=== PATIENT | male | born 1960 | race Caucasian/White ===

== ENCOUNTER 2019-05-09 03:56 | Emergency (ER) | payer OTHER ==
[~2019-05-09] VITALS: Ht 172.7 cm; Wt 90.7 kg
[~2019-05-09 03:56] MED LIST: CIPROFLOXACIN500 M1 PO; FLAGYL 250 MG250 MG PO; ZOFRAN ODT4 MG PO
[2019-05-09] MEDS ORDERED: HYDROCODON-ACE1 EAC8 PO (05:40)
[2019-05-09 05:52] VITALS: BP 127/84
== END 2019-05-09 05:53 | disposition home or self-care (01) ==
LOC: M.ERS 03:56
DX: S69.82XA Other specified injuries of left wrist, hand and finger(s), initial encounter (principal); G47.30 Sleep apnea, unspecified; Z90.49 Acquired absence of other specified parts of digestive tract; X50.9XXA Other and unspecified overexertion or strenuous movements or postures, initial encounter; Y93.67 Activity, basketball; Y92.89 Other specified places as the place of occurrence of the external cause; Y99.8 Other external cause status